=== PATIENT | male | born 1980 | race Caucasian/White ===

== ENCOUNTER 2025-07-16 21:31 | Emergency (ER) | payer SELFPAY ==
[~2025-07-16] VITALS: Ht 177.8 cm; Wt 78.0 kg
[2025-07-16 21:44] VITALS: O2SAT 99
[2025-07-16] MEDS: HYDROCODONE/ACETAMINOPHEN 5/325MG TABLET PO ONE (22:26)
[2025-07-17 00:21] LABS: HEMATOCRIT. 46.0 % (42.0-52.0); HEMOGLOBIN. 15.5 g/dL (14.0-18.0); MEAN PLATELET VOLUME 8.4 fl (7.4-10.4); PLATELET 234 x1000/uL (130-400); RED BLOOD CELL COUNT 5.59 mill/uL (4.7-6.1); RED CELL DISTRIBUTION WIDTH 13.3 % (11.6-14.6)
[2025-07-17 00:34] LABS: CREATININE 1.2 mg/dL (0.6-1.3); UREA NITROGEN BLOOD 15 mg/dL (9-23)
[2025-07-17 00:58] LABS: LYMPHOCYTES % MANUAL 8.0 % (20.0-50.0); MONOCYTES % MANUAL 8.0 % (2.0-8.0); NEUTROPHILS % MANUAL 84.0 % (45.0-75.0); PLATELET ESTIMATE NORMAL
[2025-07-17 02:18] LABS: CLARITY URINE CLEAR (CLEAR); COLOR URINE YELLOW (YELLOW); GLUCOSE URINE NEGATIVE (NEGATIVE); KETONES URINE 1+ (NEGATIVE); LEUKOCYTE ESTERASE URINE NEGATIVE (NEGATIVE); NITRITE URINE NEGATIVE (NEGATIVE); OCCULT BLOOD URINE 1+ (NEGATIVE); PH URINE 5.0 (4.5-8.0); PROTEIN URINE NEGATIVE (NEGATIVE); SPECIFIC GRAVITY URINE 1.025 (1.005-1.030); UROBILINOGEN URINE 0.2 E.U./dL (0.2-1.0)
[2025-07-17] MEDS: KETOROLAC 15MG/ML VIAL IM ONE (02:24)
[2025-07-17] MEDS ORDERED: HYDR-4001 MT (02:26)
[2025-07-17] MEDS ORDERED: TAMS-54 MT (02:26)
[2025-07-17] MEDS ORDERED: NAPR-1176 MT (02:26)
[2025-07-17 02:29] LABS: BACTERIA URINE RARE; SQUAMOUS EPITHELIAL CELL URINE RARE /lpf (RARE/1+); WBC URINE 0-2 /hpf (0-2)
[2025-07-17 02:45] VITALS: BP 135/85; PULSE 61; RESP 16; TEMP 37.1; O2SAT 100
== END 2025-07-17 02:50 | disposition home or self-care (01) ==
LOC: ER 22:29
DX: N43.3 Hydrocele, unspecified (principal); N13.2 Hydronephrosis with renal and ureteral calculous obstruction; I86.1 Scrotal varices; Z79.899 Other long term (current) drug therapy
CPT/HCPCS: 99285; 74176; 93976; 80048; 85025; 36415; 76870; 81003; 96372; J1885